=== PATIENT | male | born 1990 | race Two or more races ===

== ENCOUNTER 2016-11-26 13:05 | Emergency (ER) | payer SELFPAY ==
[2016-11-26 13:13] VITALS: BP 141/78; PULSE 99; TEMP 98.1; BMI 29.1
[2016-11-26] MEDS ORDERED: TETRACAINE 0.5% OPHTH SOLN 2 ML BOTTLE ONE (13:47)
--- NOTE | 2016-11-26 14:40 | PDOC ---
History of Present Illness - General Chief Complaint: Eye Problem Stated Complaint: OBJECT IN LT EYE Time Seen by Provider: 11/26/16 13:40 History Source: Patient Exam Limitations: No Limitations - History of Present Illness Initial Comments: 11/26/16 14:46 Chief complaint: Piece of metal in his left eye and is still there History of present illness: Patient is a 26-year-old male with no significant medical history here today after a piece of metal hit him in the left eye while he was grinding something yesterday today. He was at his job When this occurred Patient was not wearing his safety goggles at the time. Patient denies any pain in left eye or any tearing or photophobia. Past History - Past Medical History Allergies/Adverse Reactions: Allergies Allergy/AdvReac Type Severity Reaction Status Date / Time No Known Allergies Allergy Verified 11/26/16 13:10 Home Medications: Ambulatory Orders NK [No Known Home Medication] 11/26/16 Other medical history: NONE - Psycho/Social/Smoking Cessation Hx Anxiety: No Suicidal Ideation: No Smoking History: Never smoked Have you smoked in the past 12 months: No Information on smoking cessation initiated: No Hx Alcohol Use: No Drug/Substance Use Hx: No Substance Use Type: None Review of Systems - Review of Systems Able to Perform ROS?: Yes Constitutional: No: Symptoms Reported HEENTM: Yes: Other (LEFT EYE TINY PIECE OF METAL ). No: Blurred Vision, Tearing , Recent change in vision, Double Vision Respiratory: No: Symptoms reported Cardiac (ROS): No: Symptoms Reported ABD/GI: No: Symptoms Reported : No: Symptoms Reported Musculoskeletal: No: Symptoms Reported Integumentary: No: Symptoms Reported Neurological: No: Symptoms reported *Physical Exam - Vital Signs Last Vital Signs Temp Pulse Resp BP Pulse Ox 98.1 F 99 H 18 141/78 100 11/26/16 13:11 11/26/16 13:11 11/26/16 13:11 11/26/16 13:11 11/26/16 13:11 - Physical Exam General Appearance: Yes: Appropriately Dressed HEENT: positive: EOMI, ZOË, Other (NO SIEDEL SIGN LEFT EYE, TINY PIECE OF METAL NOTED LEFT PUPIL, SNELLEN 20/20 OS, 20/20 OU, OD 20/24) Neck: negative: Lymphadenopathy (R), Lymphadenopathy (L), Rigidity, Tender lateral Procedures - Consent Consent obtained: From Patient - Additional Procedures Progress: 11/26/16 14:50 Fluorscene stain to left eye no siedel sign noted, foreign body left pupil, perrla, eom left intact Medical Decision Making - Medical Decision Making 11/26/16 14:48 Patient is a 26-year-old male with no significant medical history here today after a piece of metal hit him in the left eye while he was grinding something yesterday today. He was at his job When this occurred Patient was not wearing his safety goggles at the time. Patient denies any pain in left eye or any tearing or photophobia. 11/26/16 14:51 Left eye foreign body noted pupil Plan: fluorscene stain left eye foreign body noted pupil with negative siedel sign called Dr. Carleen Guy's office will see patient at [address] [place] [address] prior to 3:30 today or if patient cannot get there in time he is to call [phone] told them that he is not going to make it in time and he will go to their [place] office at [address] [place] [address]. at 4:15 today Patient told not to rub her eye *DC/Admit/Observation/Transfer Diagnosis at time of Disposition: Foreign body, eye Qualifiers: Encounter type: initial encounter Laterality: left Qualified Code(s): T15.92XA - Foreign body on external eye, part unspecified, left eye, initial encounter - Discharge Dispostion Disposition: HOME Condition at time of disposition: Stable - Referrals Referrals: Honey Zuniga MD [Primary Care Provider] - - Patient Instructions Additional Instructions: GO IMMEDIATELY TO DR. CARLEEN BUSH'S OFFICE AT [address], [place] IF YOU CANNOT GET THERE BY 3:30 PM TODAY CALL [phone] THEN YOU MUST GO [address] TO HER OFFICE THERE DO NOT RUB LEFT EYE
== END 2016-11-26 15:19 | disposition home or self-care (01) ==
LOC: JERFT 13:05
DX: T15.82XA Foreign body in other and multiple parts of external eye, left eye, initial encounter (principal); X58.XXXA Exposure to other specified factors, initial encounter; Y93.89 Activity, other specified; Y92.69 Other specified industrial and construction area as the place of occurrence of the external cause; Y99.0 Civilian activity done for income or pay
CPT/HCPCS: 99281-25